=== PATIENT | male | born 1975 | race Caucasian/White ===

== ENCOUNTER → 2024-01-08 | Outpatient (CLI) | payer OTHER ==
--- NOTE | 2024-01-08 12:36 | MR ---
EXAMINATION TYPE: MR Prostate wo/w con DATE OF EXAM: 01/08/2024 8:41 AM COMPARISON: None. CLINICAL INDICATION: Male, 48 years old with history of R97.20 Elevated psa; Elevated PSA. TECHNIQUE: Multi-planar, multi-sequence imaging of the pelvis is performed prior to and following the uncomplicated administration of bolus intravenous gadolinium. CONTRAST: 9 [facility] Interpretive Criteria: PI-RADS v2.1 SERUM PSA: =6.5, =4.3 SURGICAL PATHOLOGY: No data available. FINDINGS: Prostatic dimensions: 4.4 x 5.1 x 3.7 cm. "Bullet" Volume:54.34 (PSA density=0.08 ng/mL/mL) CENTRAL GLAND (Central and Transition Zones/CZ+TZ): Multiple bilateral, heterogenous appearing hypertrophic stromal nodules, without suspicious lesion. (PI-RADS 2) PERIPHERAL ZONE (PZ): Bilateral linear, indistinct wedgelike areas of low ADC, and low T2 signal, No evidence of masslike a bnormality, or localized perfusional hypervascularity, to further suggest a focus of clinically signi ficant prostate cancer. (PI-RADS 2) SEMINAL VESICLES (SV): Symmetric and unremarkable. PERIPROSTATIC TISSUES: Unremarkable. LYMPH NODES: No enlarged pelvic lymph node. REMAINING PELVIS: Bladder wall is within normal limits given distention. No abnormal free or organized intrapelvic fluid collection. No pathologic bowel dilation or mural thickening. Bilateral fat containing inguinal hernias. OSSEOUS STRUCTURES: No suspicious osseous abnormality. IMPRESSION: 1. No specific features for high-risk prostate cancer. Maximum PI-RADS score: 2. 2. Moderate BPH, estimated gland volume 54.34 mL. 3. No suspicious osseous lesion. No lymphadenopathy. No evidence of prostate adenocarcinoma involving the periprostatic tissues. [facility], , 01/08/2024 12:34 PM
== END | disposition home or self-care (01) ==
LOC: RADMRIMAIN 07:42
PROVIDERS: ATTEND Urology
DX: R97.20 Elevated prostate specific antigen [PSA] (principal); N40.0 Benign prostatic hyperplasia without lower urinary tract symptoms; K40.90 Unilateral inguinal hernia, without obstruction or gangrene, not specified as recurrent
CPT/HCPCS: 72197; A9585